=== PATIENT | male | born 1965 | race Caucasian/White ===

== ENCOUNTER 2024-07-20 22:55 | Emergency (ER) | payer OTHER, SELFPAY ==
[2024-07-20 22:57] VITALS: BMI 22.3
--- NOTE | 2024-07-20 23:39 | PD.EDEXREM ---
ED Extremity Problem RME/HPI General Chief complaint: Extremity Problem,Nontraumatic Stated complaint: PAIN BELOW RIGHT KNEE, CONCERNED FOR BLOOD CLOT Time Seen by Provider: 07/20/24 23:05 Arrival date/time: 07/20/24 22:55 59-year-old male reports with complaints of sudden onset of pain popliteal area of the right knee. Patient denies any injury also denies any redness swelling warmth shortness of breath chest pain nausea vomiting. Patient states that he has been sitting for long period of time which concerned him for possible blood clot though he has no history Limitations: no limitations Related Data Home Medications ?Medication ?Instructions ?Recorded ?Confirmed No Known Home Medications 01/27/20 01/27/20 Allergies Allergy/AdvReac Type Severity Reaction Status Date / Time No Known Allergies Allergy Verified 01/27/20 22:29 Past Medical History Social History SMOKING STATUS: Never smoker ED Exam General Limitations: Present no limitations General appearance: Present alert and in no apparent distress Expanded Lower Extremity Exam Hip/Pelvis exam: Present normal inspection and full ROM Upper leg exam: Present normal inspection and full ROM; Absent tenderness Knee exam: Present normal inspection, full ROM and tenderness (Right popliteal); Absent swelling, ecchymosis, dislocation, erythema, laxity with valgus or laxity with varus Lower leg exam: Present normal inspection and full ROM; Absent swelling, erythema or palpable cord Neurological Exam Neurological exam: Present alert, oriented X3 and CN II-XII intact Psychiatric Psychiatric exam: Present normal affect and normal mood Skin Skin exam: Present warm, dry, intact and normal color Course Course Course Narrative: 59-year-old male with complaint of pain behind the right knee patient had a benign physical exam as no palpable cords no redness no swelling mild tenderness in the area differential diagnosis includes Angelo's cyst left knee strain of the muscle skeletal pains. Patient is stable nontoxic-appearing with stable vital signs he is discharged home and advised on [id number] medications. A Doppler study was offered to the patient but he expressed concern for insurance payments and declined the test at this time. He is made aware of when to return to the emergency department. Patient verbalized understanding Quality Measures none Extremity Problem Patient data External records reviewed:: None Clinical information provided by:: patient Social determinants that could affect healthcare access:: none Patient has the following chronic illnesses:: none How is presenting disease/condition affected by chronic disease/condition?: no chronic disease Evaluation data The following diagnostics were reviewed and interpreted by me:: other (specify) (none) Lab and/or radiology exams considered but not ordered:: doppler Interpretation Summary: n/a Medications / Prescriptions Medications or Prescriptions considered but not ordered:: none Medication administrations:: none Consultations Consultation(s) initiated? (list below): No Diagnosis Most likely diagnosis given after review of the tests above:: Popliteal pain Admission Indicated Admission indicated?: not indicated Admission Request Was there a request for admission?: No Disposition Plan Disposition Plan: Discharge Discharge Attestation Discharge Attestation: The patient and all family members were given an opportunity to ask questions and understood the discharge instructions. Discharge instructions specifically effects, indications for sooner follow up or return to the emergency department, and the expected course of current diagnosis. Patient condition: Stable Discharge Plan Plan Patient Disposition: HOME (Self Care) Prescriptions/Referrals Prescriptions/Med Rec: No Action No Known Home Medications Problem List Clinical Impression: Popliteal pain Patient/Caregiver Discharge Instructions Discharge Activity: activity as tolerated Education Materials: ED Pain, Acute, Uncertain Cause Additional Instructions: Return to the emergency department if you develop redness swelling and severe pain in the leg or shortness of breath. Otherwise follow-up with your primary care provider if no improvement in 3 days Print Language: Vietnamese Stand Alone Forms: Lucy Award Info., Patient Portal Info Letter
== END 2024-07-21 00:12 | disposition home or self-care (01) ==
LOC: SERX 23:59
PROVIDERS: Emergency Provider Emergency Medicine; PCP Family Medicine
DX: M25.561 Pain in right knee (principal)
CPT/HCPCS: 99281